=== PATIENT | male | born 1970 | race African-American/Black ===

== ENCOUNTER 2016-10-12 04:01 | Emergency (ER) | payer OTHER ==
[~2016-10-12] VITALS: Ht 180.3 cm; Wt 95.3 kg
[~2016-10-12 04:01] MED LIST: COLCHICINE0.6 M2 PO; MOBIC15 M1 PO; TYLENOL WITH C1 EACH PO
[2016-10-12 04:11] VITALS: BP 145/94
--- NOTE | 2016-10-12 04:35 | ED ANKLE/FOOT INJURY COMPLAINT ---
History of Present Illness General Chief Complaint: Foot or Ankle Injury Stated Complaint: RIGHT FOOT PAIN PER PT Source: patient, old records Exam Limitations: no limitations Vital Signs & Intake/Output Vital Signs & Intake/Output Vital Signs Date Time Temp Pulse Resp B/P B/P Pulse O2 O2 Flow FiO2 Mean Ox Delivery Rate 10/12 0411 98.1 64 16 145/94 95 Room Air Allergies Coded Allergies: No Known Allergies (10/12/16) Reconcile Medications Colchicine 0.6 MG TABLET 1 TAB PO BID GOUT Meloxicam (Mobic) 15 MG TABLET 1 TAB PO DAILY PAIN Meloxicam 7.5 MG TABLET 1 TAB PO DAILY PRN PAIN Tylenol With Codeine (Tylenol With Codeine #3 Tablet) 1 EACH TABLET 1 TAB PO BIDP PRN PAIN Tylenol With Codeine (Tylenol With Codeine #3 Tablet) 300 MG-30 MG TABLET 1 TAB PO Q8P PRN PAIN Triage Note: PT TO ED FOR R FOOT PAIN SINCE 10/09. NO KNOWN INJURY. HX GOUT. HAS BEEN TAKING COLCHICINE. Triage Nurses Notes Reviewed? yes HPI: Patient presents with severe pain to the base of his right great toe. Pain is constant. Similar symptoms in the past when he sat down. Patient been taking colchicine without relief. The pain is 10 out of 10 throbbing. Patient increases with ambulation. There is no radiation. Patient has no other complaints. Past History Travel History Traveled to [place] past 21 day No Medical History Any Pertinent Medical History? 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 No Review of Systems Review of Systems Constitutional: Reports: no symptoms. Respiratory: Reports: no symptoms. Cardiovascular: Reports: no symptoms. Musculoskeletal: Reports: see HPI. Neurological/Psychological: Reports: no symptoms. Immunologic/Allergic: Reports: no symptoms. Physical Exam Physical Exam General Appearance: well developed/nourished, alert, awake, moderate distress Head: atraumatic Eyes: Bilateral: PERRL, EOMI. Neck: normal inspection, supple, full range of motion Cardiovascular/Respiratory: normal breath sounds, normal peripheral pulses, regular rate/rhythm, no respiratory distress Leg/Knee/Thigh Left: normal range of motion, normal inspection Leg/Knee/Thigh Right: normal range of motion, normal inspection Ankle Right: normal inspection, normal range of motion Foot Right: erythema, soft tissue tenderness, swelling, BASE OF GREAT TOE Neuro/Vascular: normal motor function, normal sensation Progress Differential Diagnosis: cellulitis, gout, fracture, sprain, contusion Plan of Care: Orders Procedure Date/time Status XRY-FOOT COMPLETE, RIGHT 10/13 431 Active Diagnostic Imaging: Viewed by Me: Radiology Read. Discussed w/RAD: Radiology Read. Departure Departure Disposition: HOME OR SELF CARE Condition: Stable Clinical Impression Primary Impression: Right foot pain Referrals: ANNIA ARVIZU,MAKAYLA UNKNOWN (PCP/Family) Additional Instructions: RETURN IF SYMPTOMS WORSEN OR FOR ANY CONCERNS Departure Forms: Customer Survey General Discharge Information Prescriptions: Current Visit Scripts Meloxicam 1 TAB PO DAILY PRN PAIN #30 TAB Tylenol With Codeine (Tylenol With Codeine #3 Tablet) 1 TAB PO Q8P PRN PAIN #20 TAB
[2016-10-12] MEDS ORDERED: MELOXICAM7.5 M1 PO (05:06)
[2016-10-12] MEDS ORDERED: TYLENOL WITH C1 EACH PO (05:06)
--- NOTE | 2016-10-12 05:14 | RADIOLOGY REPORT ---
EXAMINATION: XR FOOT, RIGHT CLINICAL INFORMATION: Pain COMPARISON: None TECHNIQUE: AP, lateral, and oblique views of the right foot. FINDINGS: No fracture or dislocation. Alignment is anatomic. Soft tissue swelling overlies the first metatarsophalangeal joint. No osseous erosion. No ankle joint effusion. IMPRESSION: No acute osseous abnormality. Soft tissue swelling adjacent to the first metatarsophalangeal joint. No erosions. Gout is still a consideration.
== END 2016-10-12 05:13 ==
LOC: ERH 04:01
DX: M79.671 Pain in right foot (principal)
CPT/HCPCS: 73630-RT